=== PATIENT | female | born 1975 | race African-American/Black ===

== ENCOUNTER 2020-10-17 12:16 | Emergency (ER) | payer OTHER ==
--- NOTE | 2020-10-17 16:59 | RAD ---
CHEST TWO VIEWS: HISTORY: Chest pain. COMPARISON: None. FINDINGS: Large hiatal hernia. No pneumothorax or effusion. Cardiac silhouette and mediastinal contours are wit hin normal limits. No acute osseous abnormality. IMPRESSION: 1. No acute intrathoracic abnormality. 2. Moderate-large hiatal hernia. POS: HOME
[2020-10-17 18:50] LABS: Troponin I Less than 0.010 ng/mL (< 0.028)
[2020-10-17 18:51] LABS: Anion Gap 15 mmol/L (10-20); BUN (Urea Nitrogen) 14 mg/dL (7.0-18.7); Calc. Creatinine Clearance 0 mL/min (70-130); Carbon Dioxide 22 mmol/L (22-29); Chloride 107 mmol/L (98-107); Potassium 4.8 mmol/L (3.5-5.1); Sodium 139 mmol/L (136-145)
[2020-10-17 18:52] LABS: ALT (SGPT) 28 U/L (8-55); AST (SGOT) 36 U/L (5-34); Albumin 4.1 g/dL (3.5-5.0); Alkaline Phosphatase 148 U/L (40-110); Bilirubin, Total 0.3 mg/dL (0.2-1.2); Calcium 8.9 mg/dL (7.8-10.44); Glucose 93 mg/dL (70-105); Protein, Total 8.1 g/dL (6.0-8.3)
[2020-10-17 20:23] LABS: #Basophils 0.1 thou/uL (0.0-0.2); #Eosinphils 0.4 thou/uL (0.0-0.7); #Lymphocytes 2.2 thou/uL (1.20-3.40); #Monocytes 0.7 thou/uL (0.11-0.59); #Neutrophils 4.6 thou/uL (1.40-6.50); %Basophils 1.1 % (0.0-1.0); %Eosinophils 4.7 % (0.0-10.0); %Lymphocytes 27.8 % (21.0-51.0); %Monocytes 8.3 % (0.0-10.0); %Neutrophils 58.1 % (42.0-75.0); Hemoglobin 14.4 g/dL (12.0-16.0); Mean Corpuscular HGB CONC 32.1 g/dL (32.0-36.0); Mean Corpuscular Hemoglobin 27.4 pg (27.0-31.0); Mean Corpuscular Volume 85.3 fL (78.0-98.0); Mean Platelet Volume 9.1 fL (7.4-10.4); Platelet Count 191 thou/uL (130-400); RBC Distribution Width 12.4 % (11.5-14.5); Red Blood Cell (RBC) Count 5.24 mill/uL (4.20-5.40); White Blood Cell (WBC) Count 7.9 thou/uL (4.8-10.8)
== END 2020-10-17 15:04 | disposition home or self-care (01) ==
LOC: ERS 12:16
DX: I10 Essential (primary) hypertension (principal); R07.9 Chest pain, unspecified; J45.909 Unspecified asthma, uncomplicated; Z79.899 Other long term (current) drug therapy
CPT/HCPCS: 71046; 80053; 84484; 85025; 85379

== ENCOUNTER 2020-12-16 09:39 | Outpatient (CLI) | payer OTHER | END 2020-12-16 09:40 | disposition home or self-care (01) | LOC: BICMAMMO 09:39 | PROVIDERS: ATTEND Nurse Practitioner Family | DX: Z12.31 Encounter for screening mammogram for malignant neoplasm of breast (principal) | CPT/HCPCS: 77067 ==

== ENCOUNTER 2020-12-21 09:22 | Outpatient (CLI) | payer OTHER | END 2020-12-21 09:23 | disposition home or self-care (01) | LOC: BICMAMMO 09:22 | PROVIDERS: ATTEND Nurse Practitioner Family | DX: R92.2 Inconclusive mammogram (principal) | CPT/HCPCS: 77066; G0279 ==

== ENCOUNTER 2022-04-07 08:54 | Emergency (ER) | payer OTHER ==
[2022-04-07 09:35] LABS: #Basophils 0.1 thou/uL (0.0-0.2); #Eosinphils 0.2 thou/uL (0.0-0.7); #Monocytes 0.6 thou/uL (0.11-0.59); #Neutrophils 4.4 thou/uL (1.40-6.50); %Basophils 0.9 % (0.0-1.0); %Eosinophils 2.5 % (0.0-10.0); %Lymphocytes 27.7 % (21.0-51.0); %Monocytes 7.8 % (0.0-10.0); %Neutrophils 61.1 % (42.0-75.0); Hemoglobin 14.1 g/dL (12.0-16.0); Mean Corpuscular HGB CONC 31.5 g/dL (32.0-36.0); Mean Corpuscular Hemoglobin 27.4 pg (27.0-31.0); Mean Corpuscular Volume 87.1 fL (78.0-98.0); Mean Platelet Volume 8.1 fL (7.4-10.4); Platelet Count 278 thou/uL (130-400); RBC Distribution Width 12.2 % (11.5-14.5); Red Blood Cell (RBC) Count 5.13 mill/uL (4.20-5.40); White Blood Cell (WBC) Count 7.2 thou/uL (4.8-10.8)
[2022-04-07 09:37] LABS: Bilirubin Negative (Negative); Blood, Urine Negative (Negative); Clarity Clear (Clear); Glucose, Urine (Dipstick) Normal (Negative); Ketone, Urine Negative (Negative); Leukocyte Negative Leu/uL (Negative); Nitrite Negative (Negative); Protein, Urine (Dipstick) 10 mg/dL (Neg-Trace); Specific Gravity, Urine 1.026 (1.002-1.036); Urobilinogen Normal mg/dL (Less than 2); pH, Urine 6.5 (5.0-9.0)
[2022-04-07 09:55] LABS: ALT (SGPT) 14 U/L (8-55); AST (SGOT) 29 U/L (5-34); Albumin 3.6 g/dL (3.5-5.0); Alkaline Phosphatase 96 U/L (40-110); Anion Gap 9 mmol/L (10-20); BUN (Urea Nitrogen) 11 mg/dL (7.0-18.7); Bilirubin, Total 0.5 mg/dL (0.2-1.2); Calc. Creatinine Clearance 0 mL/min (70-130); Calcium 9.1 mg/dL (7.8-10.44); Carbon Dioxide 27 mmol/L (22-29); Chloride 106 mmol/L (98-107); Estimated GFR 89; Globulin 2.5 g/dL (2.4-3.5); Glucose 92 mg/dL (70-105); Lipase 16 U/L (8-78); Potassium 4.1 mmol/L (3.5-5.1); Protein, Total 6.1 g/dL (6.0-8.3); Sodium 138 mmol/L (136-145)
[2022-04-07 10:03] LABS: BHCG - Serum Negative (NEGATIVE); Pregs Control Background? CLEAR/WHITE (CLR/WHITE); Pregs Control Bar Appear? YES (CONTROL BAR)
[2022-04-07] MEDS ORDERED: Ketorolac Tromethamine 30 MG/ML VIAL ONE (10:22)
[2022-04-07] MEDS ORDERED: Iopamidol-370 76% 500 ML 1 ML ONE (11:00)
== END 2022-04-07 11:44 | disposition home or self-care (01) ==
LOC: ERS 08:54
DX: R10.12 Left upper quadrant pain (principal); R91.1 Solitary pulmonary nodule
CPT/HCPCS: 71045; 74177; 80053; 81003; 83690; 84484; 84703; 85025; 93005; 96374; J1885; Q9967

== ENCOUNTER 2022-07-12 11:49 | Outpatient (CLI) | payer OTHER | END 2022-07-12 11:50 | disposition home or self-care (01) | LOC: RAD 11:49 | PROVIDERS: ATTEND General Practice | DX: K44.9 Diaphragmatic hernia without obstruction or gangrene (principal); K21.9 Gastro-esophageal reflux disease without esophagitis | CPT/HCPCS: 74220 ==

== ENCOUNTER 2022-10-02 11:46 | Outpatient (CLI) | payer OTHER | END 2022-10-02 11:47 | disposition home or self-care (01) | LOC: DTY/OP 11:46 | PROVIDERS: ATTEND Specialist | DX: E66.01 Morbid (severe) obesity due to excess calories (principal) | CPT/HCPCS: 97802 ==

== ENCOUNTER 2022-10-30 10:39 | Outpatient (CLI) | payer OTHER | END 2022-10-30 10:40 | disposition home or self-care (01) | LOC: DTY/OP 10:39 | PROVIDERS: ATTEND Specialist | DX: E66.01 Morbid (severe) obesity due to excess calories (principal); Z68.42 Body mass index [BMI] 45.0-49.9, adult | CPT/HCPCS: 97802 ==

== ENCOUNTER 2022-11-28 09:40 | Outpatient (CLI) | payer OTHER | END 2022-11-28 09:41 | disposition home or self-care (01) | LOC: DTY/OP 09:40 | PROVIDERS: ATTEND Specialist | DX: E66.01 Morbid (severe) obesity due to excess calories (principal) | CPT/HCPCS: 97802 ==

== ENCOUNTER 2022-12-18 10:06 | Outpatient (CLI) | payer OTHER | END 2022-12-18 10:07 | disposition home or self-care (01) | LOC: BICRAD 10:06 | PROVIDERS: ATTEND Family Medicine | DX: Z71.89 Other specified counseling (principal); K44.9 Diaphragmatic hernia without obstruction or gangrene | CPT/HCPCS: 71046 ==

== ENCOUNTER 2022-12-26 09:35 | Outpatient (CLI) | payer OTHER | END 2022-12-26 09:36 | disposition home or self-care (01) | LOC: DTY/OP 09:35 | PROVIDERS: ATTEND Specialist | DX: E66.01 Morbid (severe) obesity due to excess calories (principal) | CPT/HCPCS: 97802 ==

== ENCOUNTER 2023-03-29 09:08 | Outpatient (CLI) | payer OTHER | END 2023-03-29 09:09 | disposition home or self-care (01) | LOC: DTY/OP 09:08 | PROVIDERS: ATTEND Specialist | DX: E66.01 Morbid (severe) obesity due to excess calories (principal) | CPT/HCPCS: 97802 ==

== ENCOUNTER 2023-05-16 09:31 | Outpatient (CLI) | payer OTHER | END 2023-05-16 09:32 | disposition home or self-care (01) | LOC: BICMAMMO 09:31 | PROVIDERS: ATTEND Family Medicine | DX: Z12.31 Encounter for screening mammogram for malignant neoplasm of breast (principal) | CPT/HCPCS: 77067 ==

== ENCOUNTER 2023-06-03 11:30 | Inpatient (IN) | payer OTHER ==
[2023-06-04 07:59] VITALS: BMI 46.0
[2023-06-06] MEDS ORDERED: Acetaminophen 500 MG TAB ONE (07:16)
[2023-06-06] MEDS ORDERED: Ketorolac Tromethamine 30 MG/ML VIAL ONE (07:16)
[2023-06-06] MEDS ORDERED: Heparin 5,000 UNITS/ML VIAL ONE (07:17)
[2023-06-06] MEDS ORDERED: Lidocaine 1% MPF 2 ML VIAL ONE (07:46)
[2023-06-06] MEDS ORDERED: Scopolamine 1.5 mg/72 hour Patch ONE (08:17)
[2023-06-06] MEDS ORDERED: Bupivacaine 0.25% HCL 30 ML VIAL ONE ×2 (08:30→09:03)
[2023-06-06] MEDS ORDERED: EPINEPHrine 1 MG/ML AMP ONE (08:30)
[2023-06-06] MEDS ORDERED: PHENYLEPHRINE-NS 100 MCG/ML 10 ML SYRINGE ONE (08:59)
[2023-06-06] MEDS ORDERED: Ondansetron PF 4 MG/2 ML Vial ONE (08:59)
[2023-06-06] MEDS ORDERED: Glycopyrrolate 0.2 MG/ML 5 ML SYRINGE ONE (08:59)
[2023-06-06] MEDS ORDERED: Rocuronium Bromide 10 MG/ML (10ML VIAL) ONE (08:59)
[2023-06-06] MEDS ORDERED: PROPOFOL 200 MG/20 ML VIAL ONE (08:59)
[2023-06-06] MEDS ORDERED: ePHEDrine Sulfate 50 MG/10 ML VIAL ONE (08:59)
[2023-06-06] MEDS ORDERED: Lidocaine 1% PF 5 ML VIAL ONE (08:59)
[2023-06-06] MEDS ORDERED: Famotidine/PF 20 mg/2ml Vial ONE (09:01)
[2023-06-06] MEDS ORDERED: Midazolam HCl 2 mg/2 ml Vial ONE (09:01)
[2023-06-06] MEDS ORDERED: Sodium Chloride 0.9% 100 ML ONE (09:03)
[2023-06-06] MEDS ORDERED: CEFAZOLIN 2 GM VIAL ONE (09:03)
[2023-06-06] MEDS ORDERED: fentaNYL PF 100 MCG/2 ML SYRINGE ONE ×2 (09:07→12:59)
[2023-06-06] MEDS ORDERED: Dexmedetomidine 200 MCG/2 ML VIAL ONE (09:09)
[2023-06-06] MEDS ORDERED: SUGAMMADEX SODIUM 200 MG/2 ML VIAL ONE (10:22)
[2023-06-06] MEDS ORDERED: Promethazine HCl 25 MG/ML VIAL IM PRN ×2 (12:36→13:21)
[2023-06-06] MEDS ORDERED: HYDROmorphone 2 MG/ML VIAL SLOW IVP PRN (12:36)
[2023-06-06] MEDS ORDERED: Ondansetron HCl/PF 4 MG/2 ML Vial IVP PRN (12:36)
[2023-06-06] MEDS ORDERED: Ondansetron PF 4 MG/2 ML Vial IVP PRN (13:21)
[2023-06-06] MEDS ORDERED: diphenhydrAMINE 50 MG/ML VIAL IVP PRN (13:21)
[2023-06-06] MEDS ORDERED: Dextrose 50% Abboject 50 ML SYRINGE SLOW IVP PRN (13:21)
[2023-06-06] MEDS ORDERED: Dextrose 5% in Water 1,000 ML IV PRN (13:21)
[2023-06-06] MEDS ORDERED: Morphine 4 MG/ML VIAL SLOW IVP PRN (13:21)
[2023-06-06] MEDS ORDERED: hydrALAZINE 20 MG/ML VIAL SLOW IVP PRN (13:21)
[2023-06-06] MEDS ORDERED: Albuterol 200 PUFF (6.7GM INHALER) INH PRN (13:21)
[2023-06-06] MEDS ORDERED: Glucagon 1 MG/ML KIT IM PRN (13:21)
[2023-06-06] MEDS ORDERED: Morphine 2 MG/ML VIAL SLOW IVP PRN (13:21)
[2023-06-06] MEDS ORDERED: Ipratropium/Albuterol 3 ML NEB NEB PRN (13:21)
[2023-06-06] MEDS: Hydrocodone-Acetamin 15 ML UDCUP PO PRN (16:12)
[2023-06-06] MEDS: D5 1/2 NS w/20 mEq KCL 1,000 ML IV SCH ×2 (16:12→22:47)
[2023-06-06] MEDS: Ketorolac Tromethamine 30 MG/ML VIAL IVP SCH ×2 (16:59→22:47)
[2023-06-06] MEDS: Benztropine 1 MG TAB PO SCH (19:51)
[2023-06-06] MEDS ORDERED: DULoxetine 60 MG CAP PO SCH (21:00)
[2023-06-06] MEDS ORDERED: risperiDONE 1 MG TAB PO SCH (21:00)
[2023-06-07 05:18] LABS: #Eosinphils 0.1 thou/uL (0.0-0.7); #Monocytes 1.8 thou/uL (0.11-0.59); #Neutrophils 11.4 thou/uL (1.40-6.50); %Basophils 0.3 % (0.0-1.0); %Eosinophils 0.5 % (0.0-10.0); %Lymphocytes 6.7 % (21.0-51.0); %Monocytes 12.3 % (0.0-10.0); %Neutrophils 79.8 % (42.0-75.0); Hemoglobin 12.8 g/dL (12.0-16.0); Mean Corpuscular HGB CONC 32.8 g/dL (32.0-36.0); Mean Corpuscular Volume 85.3 fl (78.0-98.0); Mean Platelet Volume 10.2 fL (7.4-10.4); Platelet Count 251 10x3/uL (130-400); RBC Distribution Width 13.6 % (11.5-14.5); Red Blood Cell (RBC) Count 4.57 mill/uL (4.20-5.40); White Blood Cell (WBC) Count 14.3 10x3/uL (4.8-10.8)
[2023-06-07] MEDS: Ketorolac Tromethamine 30 MG/ML VIAL IVP SCH (05:30)
[2023-06-07] MEDS: D5 1/2 NS w/20 mEq KCL 1,000 ML IV SCH ×2 (05:31→15:11)
[2023-06-07 05:45] LABS: Anion Gap 10 mmol/L (10-20); BUN (Urea Nitrogen) 11 mg/dL (7.0-18.7); Calc. Creatinine Clearance 149 mL/min (70-130); Calcium 8.6 mg/dL (7.8-10.44); Carbon Dioxide 22 mmol/L (22-29); Chloride 107 mmol/L (98-107); Estimated GFR 85; Glucose 170 mg/dL (70-105); Potassium 4.4 mmol/L (3.5-5.1); Sodium 135 mmol/L (136-145)
[2023-06-07] MEDS ORDERED: busPIRone HCl 10 MG TAB PO SCH (09:00)
[2023-06-07] MEDS ORDERED: Pantoprazole 40 MG VIAL IVP SCH (09:00)
[2023-06-07] MEDS ORDERED: Atorvastatin Calcium 40 MG TAB PO SCH (09:00)
[2023-06-07] MEDS: Hydrocodone-Acetamin 15 ML UDCUP PO PRN (09:21)
[2023-06-07] MEDS: Benztropine 1 MG TAB PO SCH (09:47)
[2023-06-07 10:33] VITALS: TEMP 97.9
[2023-06-07 13:53] VITALS: BP 114/75
== END 2023-06-07 17:46 | disposition home or self-care (01) | DRG 327 ==
LOC: SURG A 06-06 06:37
PROVIDERS: ADMIT Specialist; ATTEND Specialist
PROC: 0D164ZA Bypass Stomach to Jejunum, Percutaneous Endoscopic Approach (ICD-10-PCS; principal; 2023-06-06)
PROC: 0BQT4ZZ Repair Diaphragm, Percutaneous Endoscopic Approach (ICD-10-PCS; 2023-06-06)
DX: K44.9 Diaphragmatic hernia without obstruction or gangrene (principal); Z68.42 Body mass index [BMI] 45.0-49.9, adult; E66.01 Morbid (severe) obesity due to excess calories; J45.909 Unspecified asthma, uncomplicated; F41.9 Anxiety disorder, unspecified; F32.A Depression, unspecified; G89.29 Other chronic pain; Z98.51 Tubal ligation status; Z90.49 Acquired absence of other specified parts of digestive tract
CPT/HCPCS: 36415; 80048; 85025; A4649; C9113; J0171; J1644; J1650; J1885; J2250; J2405; J2704; J3480; J3490; S0020; S0028

== ENCOUNTER 2023-06-25 14:48 | Emergency (ER) | payer OTHER ==
[2023-06-25 16:05] LABS: #Basophils 0.1 thou/uL (0.0-0.2); #Eosinphils 0.2 thou/uL (0.0-0.7); #Monocytes 0.8 thou/uL (0.11-0.59); #Neutrophils 5.5 thou/uL (1.40-6.50); %Basophils 1.3 % (0.0-1.0); %Eosinophils 2.8 % (0.0-10.0); %Lymphocytes 21.1 % (21.0-51.0); %Monocytes 9.4 % (0.0-10.0); %Neutrophils 65.2 % (42.0-75.0); Hematocrit 47.5 % (36.0-47.0); Hemoglobin 15.2 g/dL (12.0-16.0); Mean Corpuscular Hemoglobin 27.5 pg (27.0-31.0); Mean Corpuscular Volume 85.9 fl (78.0-98.0); Mean Platelet Volume 10.7 fL (7.4-10.4); Platelet Count 304 10x3/uL (130-400); Red Blood Cell (RBC) Count 5.53 mill/uL (4.20-5.40); White Blood Cell (WBC) Count 8.5 10x3/uL (4.8-10.8)
[2023-06-25 16:22] LABS: ALT (SGPT) 13 U/L (8-55); AST (SGOT) 19 U/L (5-34); Albumin 4.3 g/dL (3.5-5.0); Alkaline Phosphatase 90 U/L (40-110); Anion Gap 15 mmol/L (10-20); BUN (Urea Nitrogen) 11 mg/dL (7.0-18.7); Bilirubin, Total 0.3 mg/dL (0.2-1.2); Calc. Creatinine Clearance 0 mL/min (70-130); Calcium 9.8 mg/dL (7.8-10.44); Carbon Dioxide 18 mmol/L (22-29); Chloride 108 mmol/L (98-107); Estimated GFR 58; Glucose 100 mg/dL (70-105); Lipase 61 U/L (8-78); Potassium 3.8 mmol/L (3.5-5.1); Protein, Total 7.3 g/dL (6.0-8.3); Sodium 137 mmol/L (136-145)
[2023-06-25 16:35] LABS: Bacteria/HPF None Seen HPF (None Seen); Bilirubin Negative (Negative); Blood, Urine Negative (Negative); CAUTI Indications for Culture Pelvic or flank pain; Clarity Extra Turbid (Clear); Glucose, Urine (Dipstick) 30 mg/dL (Negative); Ketone, Urine Trace mg/dL (Negative); Leukocyte 250 Leu/uL (Negative); Nitrite Negative (Negative); Protein, Urine (Dipstick) 100 mg/dL (Neg-Trace); RBC/HPF 0-3 HPF (0-3); Specific Gravity, Urine 1.036 (1.002-1.036); Urobilinogen 3 mg/dL (Less than 2); pH, Urine 5.5 (5.0-9.0)
[2023-06-25 16:51] LABS: Urine Culture Reflex Yes Yes
[2023-06-25] MEDS ORDERED: Ondansetron PF 4 MG/2 ML Vial ONE (17:14)
== END 2023-06-25 18:25 | disposition home or self-care (01) ==
LOC: ERS 14:48
DX: R11.10 Vomiting, unspecified (principal); R19.7 Diarrhea, unspecified; E78.5 Hyperlipidemia, unspecified
CPT/HCPCS: 36415; 80053; 81001; 83690; 85025; 87077; 87086; 96361; 96374; J2405

== ENCOUNTER 2023-09-03 07:28 | Emergency (ER) | payer OTHER ==
[2023-09-03 08:29] LABS: SARS-CoV-2 NAA Rapid Test Not Detected (NotDetected)
== END 2023-09-03 08:42 | disposition home or self-care (01) ==
LOC: ERS 07:28
DX: J06.9 Acute upper respiratory infection, unspecified (principal); K44.9 Diaphragmatic hernia without obstruction or gangrene; E78.5 Hyperlipidemia, unspecified; Z79.899 Other long term (current) drug therapy
CPT/HCPCS: 71046

== ENCOUNTER 2024-01-09 06:40 | Emergency (ER) | payer OTHER ==
[2024-01-09] MEDS ORDERED: Ondansetron PF 4 MG/2 ML Vial ONE (07:31)
[2024-01-09] MEDS ORDERED: Pantoprazole 40 MG VIAL ONE (07:31)
[2024-01-09 08:15] LABS: #Basophils 0.05 10x3/uL (0.0-0.2); %Eosinophils 1.3 % (0.0-10.0); %Lymphocytes 28.9 % (21.0-51.0); %Monocytes 13.8 % (0.0-10.0); %Neutrophils 54.8 % (42.0-75.0); Hematocrit 41.1 % (36.0-47.0); Hemoglobin 13.5 g/dL (12.0-16.0); Mean Corpuscular HGB CONC 32.8 g/dL (32.0-36.0); Mean Corpuscular Hemoglobin 27.6 pg (27.0-31.0); Mean Corpuscular Volume 83.9 fL (78.0-98.0); Mean Platelet Volume 10.3 fL (7.4-10.4); Platelet Count 339 10x3/uL (130-400); RBC Distribution Width 13.8 % (11.5-14.5)
[2024-01-09 08:24] LABS: Globulin 3.6 g/dL (2.4-3.5)
[2024-01-09 08:29] LABS: ALT (SGPT) 18 U/L (8-55); AST (SGOT) 23 U/L (5-34); Albumin 3.2 g/dL (3.5-5.0); Alkaline Phosphatase 105 U/L (40-110); Anion Gap 15 mmol/L (10-20); BUN (Urea Nitrogen) 9 mg/dL (7.0-18.7); Bilirubin, Total 0.3 mg/dL (0.2-1.2); Calc. Creatinine Clearance 0 mL/min (70-130); Calcium 9.4 mg/dL (7.8-10.44); Carbon Dioxide 24 mmol/L (22-29); Chloride 107 mmol/L (98-107); Estimated GFR 88; Glucose 92 mg/dL (70-105); Lipase 17 U/L (8-78); Potassium 3.7 mmol/L (3.5-5.1); Protein, Total 6.8 g/dL (6.0-8.3); Sodium 142 mmol/L (136-145)
== END 2024-01-09 09:10 | disposition home or self-care (01) ==
LOC: ERS 06:40
DX: R10.13 Epigastric pain (principal); R19.7 Diarrhea, unspecified
CPT/HCPCS: 36415; 80053; 83690; 85025; 96374; 96375; C9113; J2405

== ENCOUNTER 2024-03-04 06:31 | Emergency (ER) | payer OTHER ==
[2024-03-04] MEDS ORDERED: Fluorescein Opthalmic Strip ONE (06:46)
[2024-03-04] MEDS ORDERED: Proparacaine 0.5% Opth 15 ML BOT ONE (06:48)
[2024-03-04] MEDS ORDERED: Tetracaine HCl 0.5% Ophth Soln 15 ML Bottle EA EYE SCH (07:00)
[2024-03-04] MEDS ORDERED: Tetracaine HCl 0.5% Ophth Soln 15 ML Bottle R EYE SCH (07:00)
== END 2024-03-04 07:05 | disposition home or self-care (01) ==
LOC: ERS 06:31
DX: S05.01XA Injury of conjunctiva and corneal abrasion without foreign body, right eye, initial encounter (principal); H10.31 Unspecified acute conjunctivitis, right eye; J45.909 Unspecified asthma, uncomplicated; E78.5 Hyperlipidemia, unspecified; F41.9 Anxiety disorder, unspecified; G43.909 Migraine, unspecified, not intractable, without status migrainosus; F31.9 Bipolar disorder, unspecified; X58.XXXA Exposure to other specified factors, initial encounter; Z55.6 Problems related to health literacy
CPT/HCPCS: 99283

== ENCOUNTER 2024-05-23 15:34 | Emergency (ER) | payer OTHER | END 2024-05-23 16:28 | disposition home or self-care (01) | LOC: ERS 15:34 | DX: H60.91 Unspecified otitis externa, right ear (principal); R09.81 Nasal congestion | CPT/HCPCS: 99282 ==

== ENCOUNTER 2024-07-01 14:15 | Outpatient (CLI) | payer OTHER | END 2024-07-01 14:16 | disposition home or self-care (01) | LOC: BICMAMMO 14:15 | PROVIDERS: ATTEND Family Medicine | DX: Z12.31 Encounter for screening mammogram for malignant neoplasm of breast (principal) | CPT/HCPCS: 77063; 77067 ==